=== PATIENT | male | born 1960 | race Caucasian/White ===

== ENCOUNTER 2021-10-13 12:48 | Outpatient (REF) | payer MEDICARE, MEDICAID, SELFPAY ==
--- NOTE | 2021-10-13 | EEG_ITS ---
PROCEDURE: 24 hour ambulatory EEG. Waking background activity consists of a moderate voltage 8 hertz posterior alpha frequency, intermixed with low voltage fast frequencies anteriorly. Drowsiness is characterized with diffuse theta slowing. Stages I-IV sleep are noted with symmetrical frontal central sleep spindles, vertex sharp transients, and K complexes. Arousals are unremarkable. No focal, lateralizing, or paroxysmal discharges seen. IMPRESSION: This 24-hour ambulatory EEG is considered to be within limits. The patient remained asymptomatic. MD DARIUS Maldonado/BUD / [id number]
== END 2021-10-13 12:49 | disposition home or self-care (01) ==
LOC: HO.NEURO 12:48
PROVIDERS: PCP Internal Medicine; Visit Provider Psychiatry & Neurology Neurology
DX: R56.9 Unspecified convulsions (principal)
CPT/HCPCS: 95708

== ENCOUNTER 2024-12-08 13:40 | Outpatient (AMB) | payer MEDICARE, MEDICAID, SELFPAY ==
--- OUTSIDE RECORDS SUMMARY | 2024-09-26 09:00 | XMS_ITS ---
Author Organization [facility] Address [address], [place] [id number] Care Team Providers Care Avionics Manager Name Role Phone MARY DELGADO Primary Care Provider ALLERGIES No Known Allergies REASON FOR VISIT 3mo MEDICATIONS Medication SIG (Take, Route, Frequency, Duration) Notes Start Date End Date Status Carvedilol 6.25 MG 1.5 tablets with food Orally Twice a day Active Albuterol Sulfate (2.5 MG/3ML) 0.083% inhale 3 milliliter by NEBULIZATION route 4 times every day Inhalation 4 times daily 07/05/2021 Active Albuterol Sulfate HFA 108 (90 Base) MCG/ACT inhale 2 puff s Inhalation every 4 hrs prn 03/16/2022 Active Daliresp 500 MCG take 1 tablet by oral route every day Oral Roflumilast 03/26/2022 Active Trelegy Ellipta 200-62.5-25 MCG/ACT inhale 1 puff by inhalation route every day at the same time each day Inhalation 08/16/2021 Active levETIRAcetam 500 MG 3 tablets Orally Twice a day Active Repatha 140 MG/ML 1 mL Subcutaneous every 14 days Active Lacosamide 150 MG TAKE ONE TABLET BY MOUTH TWO TIMES A DAY 08/24/2024 Active Biktarvy 50-200-25 MG take 1 tablet by oral route every day Oral Active Entresto 97-103 MG 1 tablet Orally Twice a day Active Omeprazole 40 MG 1 capsule 1/2 to 1 hour before morning meal Orally Once a day for 30 days Active Rosuvastatin Calcium 40 MG TAKE ONE TABLET BY MOUTH ONCE DAILY for 30 Active Aspirin 81 MG 1 tablet Orally Once a day 03/31/2020 Active Nitroglycerin 0.[address] 1 TABLET UNDER THE TONGUE AT 1ST SIGN OF ATTACK, MAY REPEAT EVERY 5 MINUTES UNTIL RELIEF, IF PAIN PERSISTS AFTER 3 TABLETS IN 15 MIN CALL 911 for 8 Active OLANZapine 5 MG 1 tablet Orally Once a day Active Isosorbide Mononitrate ER 120 MG 1 tablet in the morning Orally Once a day Active Oxygen 3L per min iwth ambul; 2 L with sleeping, 0 at rest Active Sertraline HCl 100 MG 2 tablets Orally Once a day Active traZODone HCl 50 MG 1.5 MG tab Orally Once a day Active SOCIAL HISTORY Tobacco Use: Social History Observation Description Date Details (start date - stop date) Former Smoker NA - NA Sex Assigned At : Social History Observation Description Sex Assigned At Unknown Smoking Question Answer Notes Are you a: former smoker VITAL SIGNS Height 65.00 in 09/26/2024 Weight 146 lbs 09/26/2024 Blood pressure systolic 108 mm Hg 09/27/19 25 Blood pressure diastolic 64 mm Hg 025 BMI 24.29 kg/m2 09/26/2024 Encounters Encounter Location Date Provider Diagnosis [facility] [address] [place] [address] 09/26/2024 [facility] Chronic obstructive pulmonary disease, unspecified J44.9 ; Coronary artery disease of [place] artery of [place] heart with stable angina pectoris I25.118 ; Seizure disorder G40.909 ; Obstructive sleep apnea G47.33 and Human immunodeficiency virus [HIV] disease B20 ASSESSMENTS Encounter Date Diagnosis Assessment Notes Treatment Notes Treatment Clinical Notes Section Notes 09/26/2024 Chronic obstructive pulmonary disease, unspecified (ICD-10 - J44.9) 1. COPD: Stable on current bronchodilators and supplemental O2. He will call any sign of flaring 2. Coronary artery disease: Stable on medical therapy with no recent angina. Continue same 3. Seizure disorder: Recently had follow-up with neurology no changes were made to his anticonvulsant regimen 4. Obstructive sleep apnea: Not using CPAP. Explained this may be contributing to some of his headaches 5. HIV: Fully suppressed on current regimen. Has follow-up with infectious disease in 09/26/2024 Coronary artery disease of [place] artery of [place] heart with stable angina pectoris (ICD-10 - I25.118) 1. COPD: Stable on current bronchodilators and supplemental O2. He will call any sign of flaring 2. Coronary artery disease: Stable on medical therapy with no recent angina. Continue same 3. Seizure disorder: Recently had follow-up with neurology no changes were made to his anticonvulsant regimen 4. Obstructive sleep apnea: Not using CPAP. Explained this may be contributing to some of his headaches 5. HIV: Fully suppressed on current regimen. Has follow-up with infectious disease in 09/26/2024 Seizure disorder (ICD-10 - G40.909) 1. COPD: Stable on current bronchodilators and supplemental O2. He will call any sign of flaring 2. Coronary artery disease: Stable on medical therapy with no recent angina. Continue same 3. Seizure disorder: Recently had follow-up with neurology no changes were made to his anticonvulsant regimen 4. Obstructive sleep apnea: Not using CPAP. Explained this may be contributing to some of his headaches 5. HIV: Fully suppressed on current regimen. Has follow-up with infectious disease in 09/26/2024 Obstructive sleep apnea (ICD-10 - G47.33) 1. COPD: Stable on current bronchodilators and supplemental O2. He will call any sign of flaring 2. Coronary artery disease: Stable on medical therapy with no recent angina. Continue same 3. Seizure disorder: Recently had follow-up with neurology no changes were made to his anticonvulsant regimen 4. Obstructive sleep apnea: Not using CPAP. Explained this may be contributing to some of his headaches 5. HIV: Fully suppressed on current regimen. Has follow-up with infectious disease in 09/26/2024 Human immunodeficiency virus [HIV] disease (ICD-10 - B20) 1. COPD: Stable on current bronchodilators and supplemental O2. He will call any sign of flaring 2. Coronary artery disease: Stable on medical therapy with no recent angina. Continue same 3. Seizure disorder: Recently had follow-up with neurology no changes were made to his anticonvulsant regimen 4. Obstructive sleep apnea: Not using CPAP. Explained this may be contributing to some of his headaches 5. HIV: Fully suppressed on current regimen. Has follow-up with infectious disease in November PLAN OF TREATMENT Medication Medication Name Sig Start Date Stop Date Notes Carvedilol 6.25 MG 1.5 tablets with óscar d Orally Twice a day Albuterol Sulfate (2.5 MG/3ML) 0.083% inhale 3 milliliter by NEBULIZATION route 4 times every day Inhalation 4 times daily 07/05/2021 Albuterol Sulfate HFA 108 (90 Base) MCG/ACT inhale 2 puff s Inhalation every 4 hrs prn 03/16/2022 Daliresp 500 MCG take 1 tablet by ora l route every day Oral 03/26/2022 Roflumilast Trelegy Ellipta 200-62.5-25 MCG/ACT inhale 1 puff by inhalation route every day at the same time each day Inhalation 08/16/2021 levETIRAcetam 500 MG 3 tablets Orally Tw ice a day Repatha 140 MG/ML 1 mL Subcutaneous ev román 14 days Lacosamide 150 MG TAKE ONE TABLET BY M OUTH TWO TIMES A DAY 08/24/2024 Biktarvy 50-200-25 MG take 1 tablet by o ral route every day Oral Entresto 97-103 MG 1 tablet Orally Twic e a day Next Appt Details Provider Name:YAIR Spivey, 12/10/2024 02:30:00 PM, [address] [place] [address], [phone], Provider Name:MARY Allysas DELGADO , 12/10/2024 03:00:00 PM, [address] [place] [address], [phone], Provider Name:MARY Allyssa DELGADO , 12/10/2024 03:30:00 PM, [address] [place] [address], [phone], Progress Notes * Examination Category Sub-Category Detail Notes Category Not es General Examination Heart: RSR, normal S1S2 Lungs: poor air movement th roughout Extremities: no edema General Appearance no apparent distress , pleasant, chronically ill appearing, wearing O2 Psych: alert, oriented X 3 Other normal affect History and Physical Notes * HPI (History of Present Illness) Category Sub-Category Detail Notes Category Not es General Patient reports feeling fairly well. Staying inside in the heat. No chest pain No NTG use. Sees Cardiology in Nov. Saw Neuro, complained of episodic headaches.- had neg CT brain No change in seizure Rx Seeing ID soon- due for HIV labs
--- OUTSIDE RECORDS SUMMARY | 2024-11-16 08:22 | XMS_ITS ---
Author Organization [facility] Address [address], [place] [id number] Care Team Providers Care Branch Lending Manager Name Role Phone MARY DELGADO Primary Care Provider [phone] REASON FOR VISIT Angioplasty Encounters Encounter Location Date Provider Diagnosis [address] [address] 11/16/2024 MARY DELGADO PLAN OF TREATMENT Next Appt Details Provider Name:YAIR Spivey, 12/10/2024 02:30:00 PM, [address] [place] [address], [phone], Provider Name:MARY DELGADO , 12/10/2024 03:00:00 PM, [address] [place] [address], [phone], Provider Name:MARY DELGADO , 12/10/2024 03:30:00 PM, [address] [place] [address], [phone],
--- OUTSIDE RECORDS SUMMARY | 2024-11-19 05:40 | XMS_ITS ---
Author Organization [facility] Address [address], [place] [id number] Care Team Providers Care Laundry Room Attendant Name Role Phone MARY DELGADO Primary Care Provider [phone] REASON FOR VISIT Plavix 75 mg MEDICATIONS Medication SIG (Take, Route, Fr equency, Duration) Notes Start Date End Date Status Famotidine 40 MG 1 tablet Orally Once a day for 90 day(s) 11/19/2024 Active Encounters Encounter Location Date Provider Diagnosis [address] [address] 11/19/2024 MARY DELGADO PLAN OF TREATMENT Medication Medication Name Sig Start Date Stop Date Notes Famotidine 40 MG 1 tablet Orally Once a day for 90 day(s) 11/19/2024 Next Appt Details Provider Name:YAIR Spivey, 12/10/2024 02:30:00 PM, [address] [place] [address], [phone], Provider Name:MARY DELGADO , 12/10/2024 03:00:00 PM, [address] [place] [address], [phone], Provider Name:MARY DELGADO , 12/10/2024 03:30:00 PM, [address] [place] [address], [phone],
--- OUTSIDE RECORDS SUMMARY | 2024-12-02 21:16 | XMS_ITS ---
Author Organization [facility] Address [address], [place] [id number] Care Team Providers Care Sack Cleaner Name Role Phone MARY DELGADO Primary Care Provider REASON FOR VISIT RE:Plavix 75 mg Encounters Encounter Location Date Provider Diagnosis [address] [address] 12/03/2024 MARY DELGADO PLAN OF TREATMENT Next Appt Details Provider Name:YAIR Spivey, 12/10/2024 02:30:00 PM, [address] [place] [address], [phone], Provider Name:MARY DELGADO , 12/10/2024 03:00:00 PM, [address] [place] [address], [phone], Provider Name:MARY DELGADO , 12/10/2024 03:30:00 PM, [address] [place] [address], [phone],
--- OUTSIDE RECORDS SUMMARY | 2024-12-03 06:37 | XMS_ITS ---
Author Organization [facility] Address [address], [place] [id number] Care Team Providers Care Sample Washer Name Role Phone MARY DELGADO Primary Care Provider [phone] REASON FOR VISIT Famotidine MEDICATIONS Medication SIG (Take, Route, Fr equency, Duration) Notes Start Date End Date Status Famotidine 40 MG 1 tablet Orally Twic e a day for 90 day(s) 11/19/2024 Active Encounters Encounter Location Date Provider Diagnosis [address] [address] 12/03/2024 MARY DELGADO PLAN OF TREATMENT Medication Medication Name Sig Start Date Stop Date Notes Famotidine 40 MG 1 tablet Orally Twice a day for 90 day(s) 11/19/2024 Next Appt Details Provider Name:YAIR Spivey, 12/10/2024 02:30:00 PM, [address] [place] [address], [phone], Provider Name:MARY DELGADO , 12/10/2024 03:00:00 PM, [address] [place] [address], [phone], Provider Name:MARY DELGADO , 12/10/2024 03:30:00 PM, [address] [place] [address], [phone],
--- NOTE | 2024-12-08 13:41 | A.OFFVIS_ITS ---
Intake Visit Reasons: 3 month Allergies No Known Allergies Allergy (Verified 12/08/24 13:43) Medication List - Last Reconciled 12/08/24 by Dalia Santiago CNP albuterol sulfate 90 mcg/actuation (Ventolin HFA) inhalation [id number]-wtozkccq-ljrxvbj ala 50-200-25 mg (Biktarvy) 1 tab PO DAILY carvedilol mg PO clopidogrel 75 mg PO DAILY evolocumab (Repatha SureClick) mg subcut famotidine 40 mg PO BID ysxzlvaitcf-ihpxmcrwq-jwbbmaen 200-62.5-25 mcg (Trelegy Ellipta) 1 ea inhalation DAILY isosorbide mononitrate ER 120 mg PO DAILY lacosamide mg PO levetiracetam mg PO nitroglycerin mg sublingual olanzapine 5 mg PO BEDTIME roflumilast 500 mcg PO DAILY rosuvastatin 40 mg PO DAILY sacubitril-valsartan 97-103 mg (Entresto) 1 tab PO BID sertraline 100 mg PO BID trazodone 100 mg PO BEDTIME PRN HPI Comments Details: He was doing okay. He had two cardiac stents in 11/2024. Feels breathing is better. Started cardiac rehab this week. No seizures. Taking levetiracetam 1500mg twice a day and Vimpat 150mg twice a day. Memory was stable, foggy at times. Sleep was okay, unable to tolerate BiPap. Headaches were better, less frequent. Takes Tylenol as needed on occasion which helps. Previously was having headaches almost every day starting in summer 2024. No photophobia, nausea, or vomiting. Some sensitivity to loud noises. Tylenol as needed helped some. His CT brain from 07/11/21 showed mild atrophy. Needs O2 constantly. He has a history of HIV, COPD depression and anxiety and heart disease who went to [facility] emergency room by ambulance on 07/09/21 with shortness of breath and tosin arently had a cardiac arrest with an IL and multiple seizures. He was put on the ventilator and transferred to [facility]. He was on a ventilator from that point on 07/19/2021. He's had no further seizures since then and is on Keppra 1500 mg twice a day and Vimpat 150 mg twice a day. He's never had any previous seizures. Records from [facility] and not available at this time. He is on multiple medications for his psychiatric disorder as well. Was hospitalized again in 11/2021 for exacerbation of COPD and was a vent 11/25/21- , and again hospitalized 12/19/21-12/23/21 for COPD. [facility] Medical History (Updated 12/08/24 @ 13:59 by Dalia Santiago CNP) HPV in male Depression Anxiety Coronary artery disease HIV (human immunodeficiency virus infection) Surgical History (Updated 12/08/24 @ 13:59 by Dalia Santiago CNP) H/O heart artery stent History of total right hip replacement Review of Systems Const Denies chills, Denies daytime sleepiness, Reports difficulty sleeping, Reports fatigue, Denies fever(s), Denies frequent falls, Reports headache(s), Denies increased appetite, Denies poor appetite, Denies snoring, Denies weakness, Denies weight gain and Denies weight loss Eyes Denies loss of vision ENT Denies vertigo, Reports dizziness, Reports headache(s) and Denies neck pain Card Denies chest pain at rest, Denies chest pain with activity, Denies syncope, Denies leg edema, Denies palpitations, Reports dyspnea and Denies dyspnea on exertion Resp Denies cough, Reports dyspnea, Denies dyspnea on exertion and Denies snoring GI Denies abdominal pain, Denies constipation, Reports heartburn, Denies diarrhea and Denies nausea Denies urinary frequency, Denies urinary incontinence and Denies urinary urgency Musc Denies abnormal gait, Denies back pain, Reports myalgias, Reports arthralgias, Denies neck pain, Denies numbness and Denies tingling Neuro Denies abnormal gait, Denies vertigo, Reports dizziness, Denies syncope, Denies frequent falls, Reports headache(s), Denies lack of coordination, Denies loss of vision, Reports memory loss, Denies numbness, Denies Other visual disturbances, Denies restless legs, Denies seizure-like activity, Denies tingling, Denies paresthesias, Denies tremor(s) and Denies weakness Psych Reports anxiety, Reports depression, Denies auditory hallucinations, Reports memory loss and Denies visual hallucinations Endo Reports fatigue and Denies palpitations Physical Exam Const Other: General Appearance:? normal, in no acute distress. Heart:? S1, S2 normal, no murmurs. Lungs:? clear anteriorly and posteriorly. Musculoskeletal:? normal. Extremities:? no edema. Psych:? alert, oriented, cognitive function intact, cooperative with exam. Neuro Other: Abnormal Neurological Findings:?Walking with cane. Mental Status: alert and oriented X 3. Normal attention, orientation, memory, and affect. Cranial Nerves: Pupils are equal, round, and reactive to light. External ocular muscles are intact. Visual yuan are full, no ptosis. Face is symmetrical, no facial weakness or droop. Facial sensations are normal. Tongue protrudes in midline. Palate elevates symmetrically. Shoulder shrugging is normal Motor Examination: Normal muscle tone, bulk and strength. No atrophy or fasciculations. No drift of the extended upper extremities. DTR 2+. Plantars are flexor. Sensory Exam: Normal light touch, temperature, pinprick, vibration, and joint- position sensations. Rhomberg sign is absent. Coordination: No ataxia. No titubation. Gait Exam: With cane. Cerebellar Signs: Yvjpzg-oo-odsb is okay. Extrapyramidal System: No tremor, rigidity with normal facial expressions. No bradykinesia. No bradyphrenia. Normal arm swing and posture. No propulsion or retropulsion. Speech: Normal. Results Reviewed Results Reviewed: CT brain with contrast 08/28/2024 at [facility]: No findings of acute intracranial process or abnormal enhancement. 10/06/21 EEG- Mildly abnormal with 9 Hz mod voltage background. Paroxysmal sharp theta activity from both temporal regions Assessment & Plan Assessment & Plan (1) Seizure: Code(s): R56.9 - Unspecified convulsions Category: Medical Plan: Continue levetiracetam 500mg 3 tablets twice a day. Continue Vimpat 150mg 1 tablet twice a day. (2) Tension headache: Code(s): G44.209 - Tension-type headache, unspecified, not intractable Category: Medical Plan: CT scan results reviewed. May continue Tylenol as needed. Coding Level of Care Code Est Pt Level 4 (77649) Diagnoses Seizure R56.9 Tension headache G44.209
--- OUTSIDE RECORDS SUMMARY | 2024-12-08 15:58 | XMS_ITS | Patient Health Record ---
Author Organization [facility] Address [address] [place], [place] [id number] Care Team Providers Care Speech Coach Name Role Phone MARY DELGADO Primary Care Provider ALLERGIES No Known Allergies REASON FOR REFERRAL No Information MEDICATIONS Medication SIG (Take, Route, Frequency, Duration) Notes Start Date End Date Status Daliresp 500 MCG take 1 tablet by oral route every day Oral Roflumilast 03/26/2022 Active Famotidine 40 MG 1 tablet Orally Twice a day for 90 day(s) 11/19/2024 Active Nitroglycerin 0.[address] 1 TABLET UNDER THE TONGUE AT 1ST SIGN OF ATTACK, MAY REPEAT EVERY 5 MINUTES UNTIL RELIEF, IF PAIN PERSISTS AFTER 3 TABLETS IN 15 MIN CALL 911 for 8 Active Trelegy Ellipta 200-62.5-25 MCG/ACT inhale 1 puff by inhalation route every day at the same time each day Inhalation 08/16/2021 Active OLANZapine 5 MG 1 tablet Orally Once a day Active Sertraline HCl 100 MG 2 tablets Orally Once a day Active traZODone HCl 50 MG 1.5 MG tab Orally Once a day Active Isosorbide Mononitrate ER 120 MG TAKE ONE TABLET BY MOUTH ONCE DAILY for 30 Active levETIRAcetam 500 MG 3 tablets Orally Twice a day Active Repatha 140 MG/ML 1 mL Subcutaneous every 14 days Active Lacosamide 150 MG TAKE ONE TABLET BY MOUTH TWO TIMES A DAY 08/24/2024 Active Carvedilol 6.25 MG TAKE ONE AND A HALF TABLETS BY MOUTH TWO TIMES A DAY for 30 Active Biktarvy 50-200-25 MG take 1 tablet by oral route every day Oral Active Oxygen 3L per min iwth ambul; 2 L with sleeping, 0 at rest Active Omeprazole 40 MG 1 capsule 1/2 to 1 hour before morning meal Orally Once a day for 30 days Active Albuterol Sulfate (2.5 MG/3ML) 0.083% inhale 3 milliliter by NEBULIZATION route 4 times every day Inhalation 4 times daily 07/05/2021 Active Rosuvastatin Calcium 40 MG TAKE ONE TABLET BY MOUTH ONCE DAILY for 30 Active Albuterol Sulfate HFA 108 (90 Base) MCG/ACT inhale 2 puff s Inhalation every 4 hrs prn 03/16/2022 Active Aspirin 81 MG 1 tablet Orally Once a day 03/31/2020 Active Entresto 97-103 MG 1 tablet Orally Twice a day Active IMMUNIZATIONS Vaccine Route Administration Date Status Comme nts Influenza, Flublok IM Intramuscular 01/18/2024 Administere d Influenza, Fluzone Quad IM Intramuscular 12/22/2022 Admini stered Pneumococcal Prevnar 13 IM Intramuscular 01/17/2003 Admini stered Pneumococcal Prevnar 13 IM Intramuscular 02/13/2012 Admini stered Pneumococcal Prevnar 13 Unknown 12/16/2014 Administered Pneumococcal, PPV 23 Unknown 01/17/2003 Administered Pneumococcal, PPV 23 Unknown 02/13/2012 Administered [id number] IM Intramuscular 02/23/2022 Administered Prevnar Unknown 02/17/2022 Administered SARSCOV2 VAC 30 MCG TRS-SUCR Pfizer Unknown 12/28/2020 Administered Td (Tetanus Diphtheria) Unknown 06/17/2008 Administered Zoster recombinant Unknown 02/17/2022 Administered SOCIAL HISTORY Tobacco Use: Social History Observation Description Date Details (start date - stop date) Former Smoker NA - NA Sex Assigned At : Social History Observation Description Sex Assigned At Unknown Smoking Question Answer Notes Are you a: former smoker PROBLEMS Problem Type ICD Code Onset Dates Problem Status W/U Status Risk SNOMED Code Notes Problem Obstructive sleep apnea (G47.33) Active confirmed 93519046 Problem Essential (primary) hypertension (I10) Active confirmed Essential hypertension (33038022) Problem COPD exacerbation (J44.1) Active confirmed 117836735 Problem Ischemic cardiomyopathy (I25.5) Active confirmed 004511774 Problem Seizure disorder (G40.909) Active confirmed 851269705 Problem Primary osteoarthritis of left hip (M16.12) Active confirmed [id number] Problem Coronary artery disease of [place] artery of [place] heart with stable angina pectoris (I25.118) Active confirmed 73721023 Problem Chronic obstructive pulmonary disease, unspecified (J44.9) 014 Active confirmed Chronic obstructive pulmonary disease (04772186) Problem Human immunodeficiency virus [HIV] disease (B20) 010 Active confirmed Human immunodeficiency virus infection (36935677) Problem Mixed hyperlipidemia (E78.2) 010 Active confirmed Mixed hyperlipidemia (952206385) Problem Chronic obstructive pulmonary disease with (acute) exacerbation (J44.1) 010 Active confirmed Acute exacerbati on of chronic obstructive airways disease (300824623) Problem Irritable bowel syndrome with diarrhea (K58.0) 014 Active confirmed Irritable bowel syndrome with diarrhea (892380651) Problem Sprain of ribs, initial encounter (S23.41XA) 010 Active confirmed Chondrocostal joint sprain (disorder) (867001729) Problem Sprain of ribs, subsequent encounter (S23.41XD) Active confirmed Chondrocostal joint sprain (disorder) (718440615) VITAL SIGNS Blood pressure diastolic 64 mm Hg 09/26/2024 Height 65.00 in 09/26/2024 Blood pressure systolic 108 mm Hg 09/26/2024 Weight 146 lbs 09/26/2024 BMI 24.29 kg/m2 09/26/2024 Encounters Encounter Location Date Provider Diagnosis [address] [address] 01/18/2024 [facility] Chronic obstructive pulmonary disease, unspecified J44.9 ; Ischemic cardiomyopathy I25.5 ; Human immunodeficiency virus [HIV] disease B20 ; Seizure disorder G40.909 ; Neurogenic claudication R29.818 and Encounter for immunization Z23 [address] [phone] 01/30/2024 [place] [id number] 02/19/[address] [address] 04/01/2024 [place] [id number] 04/25/2024 [facility] Chronic obstructive pulmonary disease, unspecified J44.9 ; Ischemic cardiomyopathy I25.5 ; Seizure disorder G40.909 ; Frequent headaches R51.9 ; Obstructive sleep apnea G47.33 and Human immunodeficiency virus [HIV] disease B20 [facility] [address] [facility] [place] [address] 04/25/2024 [facility] [address] [place] [phone] 05/05/2024 [facility] [address] [place] [address] 05/26/2024 [facility] Coronary artery dise ase of [place] artery of [place] heart with stable angina pectoris I25.118 ; Chronic obstructive pulmonary disease, unspecified J44.9 ; Human immunodeficiency virus [HIV] disease B20 and Essential (primary) hypertension I10 [address] [address] 06/19/2024 [facility] Seizure disorder G40 .909 [facility] [address] [place] [phone] 06/23/2024 [facility] [address] [place] [id number] 06/23/[address] [address] 06/26/2024 [facility] Coronary artery dise ase of [place] artery of [place] heart with stable angina pectoris I25.118 ; Chronic obstructive pulmonary disease, unspecified J44.9 ; Human immunodeficiency virus [HIV] disease B20 ; Seizure disorder G40.909 and Ischemic cardiomyopathy I25.5 [facility] [address] [place] [phone] 08/19/2024 [facility] [address] [place] [phone] 08/19/2024 [facility] Dental infection K04 .7 ; Cervical lymphadenopathy R59.0 ; Chronic obstructive pulmonary disease, unspecified J44.9 and Essential (primary) hypertension I10 [address] [address] 09/26/2024 [facility] Chronic obstructive pulmonary disease, unspecified J44.9 ; Coronary artery disease of [place] artery of [place] heart with stable angina pectoris I25.118 ; Seizure disorder G40.909 ; Obstructive sleep apnea G47.33 and Human immunodeficiency virus [HIV] disease B20 [facility] [address] [facility] [place] [address] 11/16/2024 [facility] [address] [facility] [place] [address] 11/19/2024 [facility] [address] [place] [address] 12/03/2024 [facility] [address] [facility] [place] [address] 12/03/2024 [facility] ASSESS[facility] Encounter Date Diagnosis Assessment Notes Treatment Notes Treatment Clinical Notes Section Notes 01/18/2024 Chronic obstructive pulmonary disease, unspecified (ICD-10 - J44.9) 1. COPD/histiocytosi s X. Stable on current bronchodilators. Has been able to cut back on oxygen some. Follow closely with pulmonary 2. Ischemic cardiomyopathy: Will follow-up on coronary CT results. Needs updated lipids. Appears stable on current medical regimen. Euvolemic 3. HIV: Stable on present antiretrovirals. No changes made 4. Seizure disorder: No seizures. He sees neurology once a year at present 5. Neurogenic claudication: Is to be seen at [facility]. He had injections at [facility] in the lumbar region in the past which did not provide significant relief but surgery would be a major undertaking with his other medical issues 6. Flu shot today 01/18/2024 Ischemic cardiomyopathy (ICD-10 - I25.5) 1. COPD/histiocytosi s X. Stable on current bronchodilators. Has been able to cut back on oxygen some. Follow closely with pulmonary 2. Ischemic cardiomyopathy: Will follow-up on coronary CT results. Needs updated lipids. Appears stable on current medical regimen. Euvolemic 3. HIV: Stable on present antiretrovirals. No changes made 4. Seizure disorder: No seizures. He sees neurology once a year at present 5. Neurogenic claudication: Is to be seen at [facility]. He had injections at [facility] in the lumbar region in the past which did not provide significant relief but surgery would be a major undertaking with his other medical issues 6. Flu shot today 04/25/2024 Chronic obstructive pulmonary disease, unspecified (ICD-10 - J44.9) 1 ischemic cardiomyopathy: Multivessel disease on coronary CT. Plan was for catheterization. Will continue current medical therapy. Blood pressure is elevated today which is unusual for him. Will recheck next month 2. COPD: Stable on present bronchodilators. No changes made today 3. Seizure disorder: Saw neurology recently and no changes were made to anticonvulsants. Will send for consult 4. Frequent headaches: Discussed possible imaging. He is needing nitro 2-3 times a week and this may be contributing as well. He wishes to hold off on imaging for now 5. Obstructive sleep apnea: Reports Need to be discontinued CPAP due to his inability to tolerate 6. HIV: Stable on present antiretrovirals. Will follow with infectious disease 04/25/2024 Ischemic cardiomyopathy (ICD-10 - I25.5) 1 ischemic cardiomyopathy: Multivessel disease on coronary CT. Plan was for catheterization. Will continue current medical therapy. Blood pressure is elevated today which is unusual for him. Will recheck next month 2. COPD: Stable on present bronchodilators. No changes made today 3. Seizure disorder: Saw neurology recently and no changes were made to anticonvulsants. Will send for consult 4. Frequent headaches: Discussed possible imaging. He is needing nitro 2-3 times a week and this may be contributing as well. He wishes to hold off on imaging for now 5. Obstructive sleep apnea: Reports Need to be discontinued CPAP due to his inability to tolerate 6. HIV: Stable on present antiretrovirals. Will follow with infectious disease 05/26/2024 Chronic obstructive pulmonary disease, unspecified (ICD-10 - J44.9) 1. Coronary artery disease: Patient has prior diagnosed totally occluded right coronary. He has significant disease in the mid LAD and left circumflex now. Await discussion with cardiology next week as to whether stenting is an option. Patient is very hesitant to pursue surgery 2. COPD: Continue present bronchodilators. Chronic dyspnea is more likely cardiac in origin. 3. Hypertension: Well-controlled on present therapy. No changes made today 4. HIV: Fully suppressed on current regimen. Continue same retrovirals 05/26/2024 Coronary artery disease of [place] artery of [place] heart with stable angina pectoris (ICD-10 - I25.118) 1. Coronary artery disease: Patient has prior diagnosed totally occluded right coronary. He has significant disease in the mid LAD and left circumflex now. Await discussion with cardiology next week as to whether stenting is an option. Patient is very hesitant to pursue surgery 2. COPD: Continue present bronchodilators. Chronic dyspnea is more likely cardiac in origin. 3. Hypertension: Well-controlled on present therapy. No changes made today 4. HIV: Fully suppressed on current regimen. Continue same retrovirals 06/19/2024 Seizure disorder (ICD-10 - G40.909) 06/26/2024 Chronic obstructive pulmonary disease, unspecified (ICD-10 - J44.9) 1. Coronary artery disease: Multivessel disease reportedly found at catheterization. He is not wanting to pursue surgery at this time. Will follow with cardiology on medical therapy 2. COPD: Continue present bronchodilators. He continues on supplemental O2 3. HIV: Suppressed on recent blood work. No changes to antiviral regimen 4. Seizure disorder: No recurrence on present anticonvulsants. Continue same 5. Ischemic cardiomyopathy: Continues on medical therapy. Blood pressure is on the lower side but appears to be tolerating. Will follow closely 06/26/2024 Coronary artery disease of [place] artery of [place] heart with stable angina pectoris (ICD-10 - I25.118) 1. Coronary artery disease: Multivessel disease reportedly found at catheterization. He is not wanting to pursue surgery at this time. Will follow with cardiology on medical therapy 2. COPD: Continue present bronchodilators. He continues on supplemental O2 3. HIV: Suppressed on recent blood work. No changes to antiviral regimen 4. Seizure disorder: No recurrence on present anticonvulsants. Continue same 5. Ischemic cardiomyopathy: Continues on medical therapy. Blood pressure is on the lower side but appears to be tolerating. Will follow closely 09/26/2024 Chronic obstructive pulmonary disease, unspecified (ICD-10 [...] disease in 09/26/2024 Coronary artery disease of [place] artery of [place] heart with stable angina pectoris (ICD-10 - [...] regimen. Has follow-up with infectious disease in 08/19/2024 Cervical lymphadenopathy (ICD-10 - R59.0) 1. Cervical adenopathy/dental infection: Expect to are related. We will treat with Augmentin for a week and he will let me know if lymph node does not resolve. He has follow-up pending with the dentist for capping his tooth. If any new symptoms arise he will let me know 2. COPD: Stable on present bronchodilators. No changes made today 3. Hypertension: Stable on present regimen. No changes made today 08/19/2024 Dental infection (ICD-10 - K04.7) 1. Cervical adenopathy/dental infection: Expect to are related. We will treat with Augmentin for a week and he will let me know if lymph node does not resolve. He has follow-up pending with the dentist for capping his tooth. If any new symptoms arise he will let me know 2. COPD: Stable on present bronchodilators. No changes made today 3. Hypertension: Stable on present regimen. No changes made today 08/19/2024 Chronic obstructive pulmonary disease, unspecified (ICD-10 - J44.9) 1. Cervical adenopathy/dental infection: Expect to are related. We will treat with Augmentin for a week and he will let me know if lymph node does not resolve. He has follow-up pending with the dentist for capping his tooth. If any new symptoms arise he will let me know 2. COPD: Stable on present bronchodilators. No changes made today 3. Hypertension: Stable on present regimen. No changes made today 09/26/2024 Seizure disorder (ICD-10 - G40.909) 1. [...] regimen. Has follow-up with infectious disease in 06/26/2024 Human immunodeficiency virus [HIV] disease (ICD-10 - B20) 1. Coronary artery disease: Multivessel disease reportedly found at catheterization. He is not wanting to pursue surgery at this time. Will follow with cardiology on medical therapy 2. COPD: Continue present bronchodilators. He continues on supplemental O2 3. HIV: Suppressed on recent blood work. No changes to antiviral regimen 4. Seizure disorder: No recurrence on present anticonvulsants. Continue same 5. Ischemic cardiomyopathy: Continues on medical therapy. Blood pressure is on the lower side but appears to be tolerating. Will follow closely 05/26/2024 Human immunodeficiency virus [HIV] disease (ICD-10 - B20) 1. Coronary artery disease: Patient has prior diagnosed totally occluded right coronary. He has significant disease in the mid LAD and left circumflex now. Await discussion with cardiology next week as to whether stenting is an option. Patient is very hesitant to pursue surgery 2. COPD: Continue present bronchodilators. Chronic dyspnea is more likely cardiac in origin. 3. Hypertension: Well-controlled on present therapy. No changes made today 4. HIV: Fully suppressed on current regimen. Continue same retrovirals 04/25/2024 Seizure disorder (ICD-10 - G40.909) 1 ischemic cardiomyopathy: Multivessel disease on coronary CT. Plan was for catheterization. Will continue current medical therapy. Blood pressure is elevated today which is unusual for him. Will recheck next month 2. COPD: Stable on present bronchodilators. No changes made today 3. Seizure disorder: Saw neurology recently and no changes were made to anticonvulsants. Will send for consult 4. Frequent headaches: Discussed possible imaging. He is needing nitro 2-3 times a week and this may be contributing as well. He wishes to hold off on imaging for now 5. Obstructive sleep apnea: Reports Need to be discontinued CPAP due to his inability to tolerate 6. HIV: Stable on present antiretrovirals. Will follow with infectious disease 01/18/2024 Human immunodeficiency virus [HIV] disease (ICD-10 - B20) 1. COPD/histiocytosi s X. Stable on current bronchodilators. Has been able to cut back on oxygen some. Follow closely with pulmonary 2. Ischemic cardiomyopathy: Will follow-up on coronary CT results. Needs updated lipids. Appears stable on current medical regimen. Euvolemic 3. HIV: Stable on present antiretrovirals. No changes made 4. Seizure disorder: No seizures. He sees neurology once a year at present 5. Neurogenic claudication: Is to be seen at [facility]. He had injections at [facility] in the lumbar region in the past which did not provide significant relief but surgery would be a major undertaking with his other medical issues 6. Flu shot today 01/18/2024 Seizure disorder (ICD-10 - G40.909) 1. COPD/histiocytosi s X. Stable on current bronchodilators. Has been able to cut back on oxygen some. Follow closely with pulmonary 2. Ischemic cardiomyopathy: Will follow-up on coronary CT results. Needs updated lipids. Appears stable on current medical regimen. Euvolemic 3. HIV: Stable on present antiretrovirals. No changes made 4. Seizure disorder: No seizures. He sees neurology once a year at present 5. Neurogenic claudication: Is to be seen at [facility]. He had injections at [facility] in the lumbar region in the past which did not provide significant relief but surgery would be a major undertaking with his other medical issues 6. Flu shot today 04/25/2024 Frequent headaches (ICD-10 - R51.9) 1 ischemic cardiomyopathy: Multivessel disease on coronary CT. Plan was for catheterization. Will continue current medical therapy. Blood pressure is elevated today which is unusual for him. Will recheck next month 2. COPD: Stable on present bronchodilators. No changes made today 3. Seizure disorder: Saw neurology recently and no changes were made to anticonvulsants. Will send for consult 4. Frequent headaches: Discussed possible imaging. He is needing nitro 2-3 times a week and this may be contributing as well. He wishes to hold off on imaging for now 5. Obstructive sleep apnea: Reports Need to be discontinued CPAP due to his inability to tolerate 6. HIV: Stable on present antiretrovirals. Will follow with infectious disease 05/26/2024 Essential (primary) hypertension (ICD-10 - I10) 1. Coronary artery disease: Patient has prior diagnosed totally occluded right coronary. He has significant disease in the mid LAD and left circumflex now. Await discussion with cardiology next week as to whether stenting is an option. Patient is very hesitant to pursue surgery 2. COPD: Continue present bronchodilators. Chronic dyspnea is more likely cardiac in origin. 3. Hypertension: Well-controlled on present therapy. No changes made today 4. HIV: Fully suppressed on current regimen. Continue same retrovirals 06/26/2024 Seizure disorder (ICD-10 - G40.909) 1. Coronary artery disease: Multivessel disease reportedly found at catheterization. He is not wanting to pursue surgery at this time. Will follow with cardiology on medical therapy 2. COPD: Continue present bronchodilators. He continues on supplemental O2 3. HIV: Suppressed on recent blood work. No changes to antiviral regimen 4. Seizure disorder: No recurrence on present anticonvulsants. Continue same 5. Ischemic cardiomyopathy: Continues on medical therapy. Blood pressure is on the lower side but appears to be tolerating. Will follow closely 09/26/2024 Obstructive sleep apnea (ICD-10 - G47.33) [...] regimen. Has follow-up with infectious disease in 08/19/2024 Essential (primary) hypertension (ICD-10 - I10) 1. Cervical adenopathy/dental infection: Expect to are related. We will treat with Augmentin for a week and he will let me know if lymph node does not resolve. He has follow-up pending with the dentist for capping his tooth. If any new symptoms arise he will let me know 2. COPD: Stable on present bronchodilators. No changes made today 3. Hypertension: Stable on present regimen. No changes made today 01/18/2024 Neurogenic claudication (ICD-10 - R29.818) 1. COPD/histiocytosi s X. Stable on current bronchodilators. Has been able to cut back on oxygen some. Follow closely with pulmonary 2. Ischemic cardiomyopathy: Will follow-up on coronary CT results. Needs updated lipids. Appears stable on current medical regimen. Euvolemic 3. HIV: Stable on present antiretrovirals. No changes made 4. Seizure disorder: No seizures. He sees neurology once a year at present 5. Neurogenic claudication: Is to be seen at [facility]. He had injections at [facility] in the lumbar region in the past which did not provide significant relief but surgery would be a major undertaking with his other medical issues 6. Flu shot today 04/25/2024 Obstructive sleep apnea (ICD-10 - G47.33) 1 ischemic cardiomyopathy: Multivessel disease on coronary CT. Plan was for catheterization. Will continue current medical therapy. Blood pressure is elevated today which is unusual for him. Will recheck next month 2. COPD: Stable on present bronchodilators. No changes made today 3. Seizure disorder: Saw neurology recently and no changes were made to anticonvulsants. Will send for consult 4. Frequent headaches: Discussed possible imaging. He is needing nitro 2-3 times a week and this may be contributing as well. He wishes to hold off on imaging for now 5. Obstructive sleep apnea: Reports [facility] Need to be discontinued CPAP due to his inability to tolerate 6. HIV: Stable on present antiretrovirals. Will follow with infectious disease 06/26/2024 Ischemic cardiomyopathy (ICD-10 - I25.5) 1. Coronary artery disease: Multivessel disease reportedly found at catheterization. He is not wanting to pursue surgery at this time. Will follow with cardiology on medical therapy 2. COPD: Continue present bronchodilators. He continues on supplemental O2 3. HIV: Suppressed on recent blood work. No changes to antiviral regimen 4. Seizure disorder: No recurrence on present anticonvulsants. Continue same 5. Ischemic cardiomyopathy: Continues on medical therapy. Blood pressure is on the lower side but appears to be tolerating. Will follow closely 09/26/2024 Human immunodeficiency virus [HIV] disease (ICD-10 [...] regimen. Has follow-up with infectious disease in 04/25/2024 Human immunodeficiency virus [HIV] disease (ICD-10 - B20) 1 ischemic cardiomyopathy: Multivessel disease on coronary CT. Plan was for catheterization. Will continue current medical therapy. Blood pressure is elevated today which is unusual for him. Will recheck next month 2. COPD: Stable on present bronchodilators. No changes made today 3. Seizure disorder: Saw neurology recently and no changes were made to anticonvulsants. Will send for consult 4. Frequent headaches: Discussed possible imaging. He is needing nitro 2-3 times a week and this may be contributing as well. He wishes to hold off on imaging for now 5. Obstructive sleep apnea: Reports DrCarmen Need to be discontinued CPAP due to his inability to tolerate 6. HIV: Stable on present antiretrovirals. Will follow with infectious disease 01/18/2024 Encounter for immunization (ICD-10 - Z23) Influenza vaccine administered . VIS sheet given. Patient counseled and questions answered. 1. COPD/histiocytosi s X. Stable on current bronchodilators. Has been able to cut back on oxygen some. Follow closely with pulmonary 2. Ischemic cardiomyopathy: Will follow-up on coronary CT results. Needs updated lipids. Appears stable on current medical regimen. Euvolemic 3. HIV: Stable on present antiretrovirals. No changes made 4. Seizure disorder: No seizures. He sees neurology once a year at present 5. Neurogenic claudication: Is to be seen at [facility]. He had injections at [facility] in the lumbar region in the past which did not provide significant relief but surgery would be a major undertaking with his other medical issues 6. Flu shot today PLAN OF TREATMENT Next Appt Details Provider Name:YAIR Spivey, 12/10/2024 02:30:00 PM, [address] [place] [address], [phone], Provider Name:MARY DELGADO , 12/10/2024 03:00:00 PM, [address] [place] [address], [id number], Provider Name:MARY DELGADO , 12/10/2024 03:30:00 PM, [address] [place] [address], [phone], Insurance Providers Payer Name Payer Address Payer Phone Subscriber Number Group Number Insured Name Patient Relationship to Insured Coverage Start Date Coverage End Date [employer]IC[employer] [address] [place] [address] [id number] CHRISTINA DAVIS Self - patient is the insured [facility] [address] [place] [address] [id number] CHRISTINA DAVIS Self - patient is the insured MEDICAL (GENERAL) HISTORY Medical History History ICD Code Disease : Condyloma acuminata, Disease : Histiocytosis X, Disease : HIV, cardiovascular, Disease : Elevated lipid s, gastrointestinal, Disease : GERD, psychiatrid : depression and anxiety pulmonary, Disease : COPD, Problems: Chronic obstructive lung disea se, Problems: Gastroesophageal reflux diseas e, Problems: Human immunodeficiency virus i nfection, Problems: Malaise and fatigue, Problems: Malignant histiocytosis of ext ranodal AND/OR solid organ site Seizures SHELBY - did not tolerate CPAP Surgical History Surgery Date(Month/Year) Right total hip replacement Jan 2023 Disease : cad 3 VESSEL, Sx_Procedure : t reatment medfically
--- OUTSIDE RECORDS SUMMARY | 2024-12-08 15:58 | XMS_ITS | Clinical Summary ---
Author Organization 300 [facility] Address [address] [place] [address] Phone Care Team Providers Care Pumping Supervisor Name Role Phone Jimmie Cristobal MD Primary Care Provider [phone] Allergies No known active allergies Medications traZODone (DESYREL) 100 mg tablet Take 1 tablet (100 mg total) by mouth at bedtime. Active sacubitriL-vals heber (Entresto) 97-103 mg per tablet Take 1 tablet by mouth 2 (two) times a day. Active OLANZapine (ZyPREXA) 2.5 mg tablet Take 1 tablet (2.5 mg total) by mouth at bedtime. Active isosorbide mononitrate (IMDUR) 120 mg 24 hr tablet Take 1 tablet (120 mg total) by mouth 1 (one) time each day. 2 Active carvediloL (COREG) 6.25 mg tablet Take 1.5 tablets by mouth 2 (two) times a day with meals. Active lacosamide (VIMPAT) 150 mg tablet tablet Take 1 tablet (150 mg total) by mouth 2 (two) times a day. Active levETIRAcetam (KEPPRA) 500 mg tablet Take 3 tablets (1,500 mg total) by mouth 2 (two) times a day. Active Oxygen Therapy (O2) gas Oxygen Historical (HISTORICAL OXYGEN) Inhale 1-2 L into the lungs. 2 L during the daily with exertions. 1 L at night Active omeprazole (PriLOSEC) [address] capsule Take 1 capsule (40 mg total) by mouth 1 (one) time each day. Active bictegravir-emt ricitabine-teno fovir alafenamide (Biktarvy) 50-200-25 mg per tablet Take 1 tablet by mouth 1 (one) time each day. Active nitroglycerin (NITROSTAT) 0.[address] 1 tablet (0.4 mg total) under the tongue every 5 (five) minutes if needed. Active aspirin 81 mg EC tablet Take 1 tablet (81 mg total) by mouth 1 (one) time each day. Active diclofenac (VOLTAREN) 1 % topical gel Apply topically. A ctive rosuvastatin (CRESTOR) 40 mg tablet Take 1 tablet (40 mg total) by mouth 1 (one) time each day. Active umeclidinium (Incruse Ellipta) 62.5 mcg/actuation inhalation Inhale 1 puff by mouth 1 (one) time each day. Active albuterol HFA (PROAIR HFA ; PROVENTIL HFA ; VENTOLIN HFA) 90 mcg/actuation inhaler Inhale 2 puffs by mouth every 6 (six) hours if needed for wheezing. Active cholecalciferol (VITAMIN D-3) 50 mcg (2,000 unit) tablet Take 1 tablet (2,000 Units total) by mouth 1 (one) time each day. Active evolocumab (Repatha SureClick) 140 mg/mL pen injector injectionIndica tions:Coronary artery disease of [place] artery of [place] heart with stable angina pectoris (CMS/[facility] V24) Inject 1 mL (140 mg total) under the skin every 14 (fourteen) days. 6 mL 3 5 Active benzonatate (TESSALON) 100 mg capsule Take 1 capsule (100 mg total) by mouth 3 (three) times a day if needed. Active budesonide (PULMICORT) 0.5 mg/2 mL nebulizer solution Take 1 mL (0.25 mg total) by nebulization 1 (one) time each day. 2 Active diazePAM (VALIUM) 5 mg tablet Take 1 tablet (5 mg total) by mouth 3 (three) times a day if needed. Active dapagliflozin propanediol (FARXIGA) 10 mg tablet Take 1 tablet (10 mg total) by mouth 1 (one) time each day. 2 Active HYDROcodone-cuong taminophen (NORCO) 5-325 mg per tablet Take 1 tablet by mouth every 4 (four) hours if needed. Active LORazepam (ATIVAN) 1 mg tablet Take 1 tablet (1 mg total) by mouth every 6 (six) hours if needed. Active ipratropium-alb uteroL (DUONEB) 0.5-2.5 mg/3 mL nebulizer solution Inhale 3 mL by mouth every 6 hours as needed. 2 Active icosapent ethyL (Vascepa) 1 gram capsule Take 2 capsules (2 g total) by mouth 2 (two) times a day with meals. Active nicotine (NICODERM CQ) 14 mg/[address] 1 patch on the skin 1 (one) time each day at the same time. Active polyethylene glycol (GoLYTELY) 236-22.74-6.74 -5.86 gram solution Take 4,000 mL by mouth 1 (one) time. 4 Active azithromycin (ZITHROMAX) 250 mg tablet Take 1 tablet (250 mg total) by mouth 3 (three) times a week. 36 each 5 01/07/20 25 Active fluticasone-ume clidinium-vilan terol (TRELEGY ELLIPTA) 200-62.5-25 mcg inhaler Inhale 1 puff (200 mcg total) by mouth 1 (one) time each day. 1 each 11 5 Active sertraline (ZOLOFT) 100 mg tablet Take 1 tablet (100 mg total) by mouth 1 (one) time each day. 5 Active roflumilast (DALIRESP) 500 mcg tabletIndicatio ns:Chronic obstructive pulmonary disease, unspecified COPD type ([facility] V24, [facility] V28) Take 1 tablet (500 mcg total) by mouth 1 (one) time each day. 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 V24, [facility] V28) 09/08/2024 Chronic heart failure with p reserved ejection fraction (HFpEF) ([facility] V24, [facility] V28) 09/08/2024 Assessment & Plan (11/16/2024 5:14 PM EDT): Muscle pain 09/08/2024 Osteoarthritis 09/08/2024 Peripheral nerve disease 09/08/2024 Scoliosis 09/08/2024 Smoker 09/08/2024 Angina decubitus ([facility] V24) 04/23/2024 Other chest pain 11/22/2023 Overview (03/18/2024): Last Assessment & Plan: As above, we will evaluate this further with an ischemic workup. There may have been a musculoskeletal component involved at the time of this discomfort; however, and was able to be identified today. We will continue to reevaluate this as needed. Right carotid bruit 11/22/2023 Overview (03/18/2024): Last Assessment & Plan: We will evaluate this new finding further with a carotid duplex. Continue Repatha; most recent lipid panel from August 2022 reveals an LDL that is very well- controlled. Blood pressure is favorable as well. Ischemic cardiomyopathy 08/19/2021 Assessment & Plan (11/16/2024 5:14 PM EDT): The patient has a history of ischemic cardiomyopathy with a drop in his EF to 25-30% in July 2021 during hospitalization for COPD exacerbation at which time he was found to have an NSTEMI; EF subsequently improved and was 50 to 55% on most recent echocardiogram on 06/12/2024 which also notes abnormal diastolic function. He appears euvolemic on exam today and offers no symptoms concerning for overt heart failure. He continues to have ongoing episodes of this pain relieved with nitro. As discussed further below, we are investigating further options for revascularization given that he has declined coronary artery bypass graft; he was previously felt not to be a good candidate for bypass surgery and continues to remain as such given his underlying pulmonary history. Will not make any changes to his current guideline directed medical therapies for heart failure; continue carvedilol, Farxiga, and Entresto as well as isosorbide for vasodilatory effect. We discussed risk reduction through lifestyle modifications including healthy diet, routine exercise, and weight management. We reviewed heart failure management including low sodium diet, symptom surveillance, daily weights, and medication compliance. I've asked the patient to call if they develop worsening symptoms of heart failure such as increased shortness of breath, new or worsening cough, increased swelling in the legs or ankles, or weight gain of more than 2 pounds in one day or 4 pounds in one week. Orders: Basic metabolic panel; Future Magnesium; Future HTN (hypertension) 08/18/2021 Overview (03/18/2024): Last Assessment & Plan: The patient's blood pressure remains well controlled on current medical therapies; continue carvedilol, Entresto, and isosorbide. Most recent metabolic panel completed in December 2022 shows stable renal function and electrolytes. Assessment & Plan (11/16/2024 5:14 PM EDT): Blood pressure is favorable on current antihypertensive regimen; continue carvedilol and Entresto, and Imdur. Will update a metabolic panel and magnesium level prior to his upcoming cardiac cath. Orders: Basic metabolic panel; Future Magnesium; Future Hypokinesis 08/18/2021 Myocardial infarction type 2 ([facility] V24, [facility] V28) 08/18/2021 Overview (03/18/2024): hypokinesis Acute respiratory failure wi th hypoxia ([facility] V24, [facility] V28) 07/20/2021 Non-convulsive status epilep ticus ([facility] V24, [facility] V28) 07/12/2021 Familial hypercholesterolemia 05/17/2021 Overview (03/18/2024): Last Assessment & Plan: Continue Repatha; as above LDL has been well-controlled. Assessment & Plan (11/16/2024 5:14 PM EDT): LDL goal for this patient was a history of coronary artery disease as well as diabetes is less than 55; his most recent lipid panel completed 06/06/2024 shows an LDL of 9. Continue Repatha, rosuvastatin, and Vascepa. Panlobular emphysema ([facility] V24, [facility] V28) 05/17/2021 Chronic respiratory failure with hypoxia ([facility] V24, [facility] V28) 10/23/2020 Human immunodeficiency virus ([facility] V24, [facility] V28) 10/23/2020 Coronary artery disease invo lving [place] coronary artery of [place] heart without angina pectoris 04/15/2020 Overview (03/18/2024): Last Assessment & Plan: The patient has a history of triple-vessel disease noted on cardiac catheterization in 02/21/2021 but was not felt to be a good candidate for bypass surgery at that time and was treated medically. He also has a history of ischemic cardiomyopathy with a drop in his EF in July 2021 during a hospitalization for COPD exacerbation. He was found to have an NSTEMI at that time; again he was managed medically and in February 2022 his EF was noted to have improved to 50%. He presents today reporting somewhat atypical chest pain; he has had 2 episodes of left-sided chest pain that have both occurred with going from a laying to seated position on the edge of his bed. He has been able to climb stairs since these episodes without any exertional chest pain. His chest pain is not reproducible upon palpation today. This chest pain was very concerning for him, especially given that it resolved only after nitroglycerin use; we did discuss that it is reassuring that he is able to exert himself without any recurrent symptoms. However, to be prudent he is willing to undergo a nuclear stress test for further evaluation. He does have a history of a seizure disorder but has not had any seizures since 2021 and has been maintained on lacosamide and levetiracetam, followed regularly by neurology. He has a history of COPD but has no wheezes on exam today. Once the results of his stress test have been reviewed, we will continue to readdress the plan. He will call us sooner for any new or worsening symptoms. Continue beta-blockade, long-acting nitrate, daily ASA, and Repatha. Patient advised to seek emergency medical attention by calling 911 if they were to develop severe dyspnea, chest pain that did not resolve with rest or nitroglycerin, or if they were to faint. Assessment & Plan (11/16/2024 5:14 PM EDT): The patient has a history of triple-vessel disease noted on cardiac catheterization in 02/2021 at which time he was not felt to be a good candidate for bypass surgery and was treated medically. Given ongoing angina, he ultimately underwent repeat cardiac catheterization on 04/24/2024 at which time repeat reevaluation for CABG was recommended. He subsequently went with cardiac surgery and via shared decision making, the patient ultimately declined CABG due to his underlying pulmonary disease. Per cardiac cath report, Dr. Jackson had stated that PCI of the LAD and circumflex could be considered if the patient was not felt to be a suitable candidate for coronary artery bypass grafting. As such, I have reviewed this once again with Dr. Jackson who agrees with his previous statements and feels that this continues to be an appropriate next step. The patient is willing to undergo PCI with the understanding that revascularization will not be complete. The risks and benefits of coronary angiogram were discussed with the patient, including the increased risk for bleeding and the less than 0.1% risk for [place], stroke, or . The patient understands and wishes to proceed with coronary angiogram. All questions answered. The patient was advised to refrain from exertional activites and to seek emergent medical attention if he/she develops chest pain or dyspnea which does not resolve with rest or sublingual nitroglycerin. We will not make any changes to his current cardioprotective medical therapies; continue carvedilol, Imdur, daily ASA, Repatha, rosuvastatin, and Vascepa. The patient was advised to seek emergent medical attention by calling 911 if they were to develop severe dyspnea, chest pain that did not resolve with rest or nitroglycerin, or if they were to faint. Essential (primary) hypertension 03/05/2020 Anxiety 01/30/2018 Chronic back pain 01/30/2018 COPD (chronic obstructive pu lmonary disease) ([facility] V24, [facility] V28) 01/30/2018 Overview (03/18/2024): O2 dependent, 4L Depression 01/30/2018 Fatty liver 01/30/2018 GERD (gastroesophageal reflux disease) 8 Haemophilus influenzae infection 01/30/2018 Overview (03/18/2024): 03/2017 IP admit. rhinovirus/enterovirus Histiocytosis X ([facility] V24, [facility] V28) 01/30 Hyperlipidemia 01/30/2018 Overview (03/18/2024): Last Assessment & Plan: Excellent control on Praluent plus Crestor. IBS (irritable bowel syndrome) 01/30/2018 Asymptomatic HIV infection ([facility] V24, [facility] V28) Resolved Problems Problem Noted Date Diagnosed Date Resolved Date Acute systolic CHF (congesti ve heart failure) ([facility] V24, [facility] V28) 07/20/2021 11/16/2024 Encounters Date Type Department Care Team Description 11/13/2024 2:40 PM EDT Office Visit [facility] Cardiology [facility] [place] [phone] Breana Tang NP Ischemic cardiomyopathy (Primary Dx); Chronic heart failure with preserved ejection fraction ([facility] V24, [facility] V28); Coronary artery disease involving [place] coronary artery of [place] heart without angina pectoris; Primary hypertension; Familial hypercholesterolemia 11/13/2024 Telephone [facility] Cardiology [facility] [address] [place] [address] Breana Tang NP 10/07/2024 Telephone Pulmonology [facility] [address] [place] [phone] Josiah Santos MD 09/10/2024 2:00 PM EDT Office Visit Pulmonology [facility] [address] [place] [phone] Josiah Santos MD Pulmonary emphysema, unspecified emphysema type ([facility] V24, [facility] V28) (Primary Dx); Hypoxemia; Pulmonary nodule from Last 3 Months Immunizations Immunization Administration Dates Next Due Hep A, Unspecified 09/19/2016 Hepatitis B (Numneql-X-Xdgbe , Recombivax HB-Adult) 19yo and older 06/25/2018,04/19/2017,11/23/2016,10/19 Meningococcal Conjugate (Men veo) MenACWY 11yo to less than 19 yo 08/23/2017,04/19/2017 Pneumococcal conjugate 13 va lent (Prevnar 13, PCV13) 2mo and older 03/05/2015 Pneumococcal polysaccharide 23 valent (Pneumovax 23) 2yo and older 08/09/2017 Tdap Tetanus diptheria acell ular pertussis (Boostrix; Adacel) 7yo and older 09/14/2016 Surgical History Surgery Date Site/Laterality Comments OTHER SURGICAL HISTORY PROCEDURE: HISTORY OTHER; COMMENT: Testicular surgery OTHER SURGICAL HISTORY PROCEDURE: HISTORY OTHER; COMMENT: Lung Biopsy OTHER SURGICAL HISTORY PROCEDURE: HISTORY OTHER; COMMENT: Rectal Wart curettaged KNEE ARTHROSCOPY PROCEDURE: [place] ARTHROSCOPY AID TX SPINE&/FX KNEE W/O FIXJ CARDIAC CATHETERIZATION DONE ON 05/02/2024 AT [facility] [place] [place] INDICATIONS:CHEST PAIN Medical History Medical History Date Comments HIV (human immunodeficiency virus infection) ([facility] V24, [facility] V28) 01/30/2018 DX:HIV (human im munodeficiency virus infection) ([facility]); COMMENT: 1998, on HAART Hyperlipidemia 01/30/2018 DX:Hyperlipidemi a History of syphilis 01/30/2018 DX:History o f syphilis; COMMENT: 08/2017 Treated IBS (irritable bowel syndrome) 01/30/2018 D X:IBS (irritable bowel syndrome) GERD (gastroesophageal reflu x disease) 01/30/2018 DX:GERD (gastroesophageal re flux disease) Histiocytosis X ([facility] V24 , [facility] V28) 01/30/2018 DX:Histiocytosis X ([facility]) COPD (chronic obstructive pu lmonary disease) ([facility] V24, [facility] V28) 01/30/2018 DX:COPD (chronic o bstructive pulmonary disease) ([facility]); COMMENT: O2 dependent, 4L Haemophilus influenzae infection 01/30/2018 DX:Haemophilus influenzae infection; COMMENT: 03/2017 IP admit. rhinovirus/enterovirus Anxiety 01/30/2018 DX:Anxiety Depression 01/30/2018 DX:Depression Chronic back pain 01/30/2018 DX:Chronic jalen k pain Fatty liver 01/30/2018 DX:Fatty liver Asthma DX:Asthma Chronic respiratory failure ([facility] V24, [facility] V28) DX:Chronic respiratory failu re ([facility]) Family History Medical History Relation Name Comments No Known Problems Brother 1 No Known Problems Brother 2 No Known Problems Brother 3 Hypertension Father Other: Vascular Disease Father Gerber foy Gallbladder-Sepsis MULUGETA- at age 79 Coronary artery disease Mother Heart attack Mother Hyperlipidemia, @ 57 d/t cardiac disease Relation Name Status Comments Brother 1 Brother 2 Brother 3 Father Mother Social History Tobacco Use Types Packs/Day Years Used Date Smoking Tobacco: Former Cigarettes Q uit: 03/05/2020 Smokeless Tobacco: Never Tobacco Cessation:Counseling Given: Not Answered Alcohol Use Standard Drinks/Week Comments Yes 0 (1 standard drink = 0.6 oz pur e alcohol) Sex and Gender Information Value Date Recorded Sex Assigned at Not on file Legal Sex Male 2:46 AM EST Gender Identity Not on file Sexual Orientation Not on file Obstetrics History Last Filed Vital Signs Vital Sign Reading Time Taken Comments Blood Pressure 115/60 11/13/2024 2:42 PM EDT Pulse 76 11/13/2024 2:42 PM EDT Temperature 36.3 C (97.3 F) 09/10/2024 1:50 PM EDT Respiratory Rate 20 09/10/2024 1:50 PM EDT Oxygen Saturation 92% 11/13/2024 2:42 PM EDT Inhaled Oxygen Concentration - - Weight 68 kg (150 lb) 11/13/2024 2:42 PM EDT Height 165.1 cm (5' 5 ) 09/10/2024 1:50 PM EDT Body Mass Index 24.96 09/10/2024 1:50 PM EDT Plan of Treatment Upcoming Encounters Date Type Department Care Team (Late st Contact Info) Description 12/17/2024 2:15 PM EDT Office Visit Pulmonology - [place] [address] [facility] [address] [facility] [address] [place] [address] Josiah Santos MD [address] [place] [phone] 12/18/2024 1:40 PM EDT Office Visit [facility] [address] [facility] [address] [place] [address] Breana Tang, FITNESS DIRECTOR [address] [address] Health Maintenance Due Date Last Done Comments MMR Vaccines (1 of 2 - Risk 2-dose series) 1978 Hepatitis A Vaccines (2 of 2 - Risk 2-dose series) 03/22/2017 09/19/2016 Hepatitis C Screening 02/05/2022 Medicare Annual Wellness Visit 02/05/2022 Social Influencers of Health Screening 02/05/2022 Meningococcal ACWY Vaccine (3 - Risk 2-dose series) 08/23/2022 08/23/2017, 08/13/2017, 04/19/2017 Depression Screening 03/05/2024 COVID-19 Vaccine (6 - Pfizer risk season) 2024 11/22/2023, 01/19/2022, 12/28/2020, Additional history exists Influenza Vaccine (#1) 2024 , 12/22/2022, 12/21/2021, Additional history exists Hypertension/CHF/CAD Annual BMP Blood Test 04/24/2025 04/24/2024, 07/29/2021, 07/29/2021, Additional history exists DTaP,Tdap,and Td Vaccines (2 - Td or Tdap) 09/14/2026 09/14/2016 Colorectal Cancer Screening: FIT-DNA (Cologuard) 10/12/2026 10/13/2023, 10/13/2023 Cholesterol Screening (Lipid Panel) 06/06/2029 06/06/2024 Hepatitis B Vaccines Completed 06/25/2018, 06/22/2018, 04/19/2017, Additional history exists Pneumococcal Vaccine: 50+ Years Completed 02/17/2022, 08/09/2017, 03/05/2015 Zoster Vaccines Completed 08/15/2022, 02/17/2022 RSV Immunization Adult Patients Completed 11/22/2023 HIB Vaccines Aged Out No longer eligi ble based on patient's age to complete this topic HPV Vaccines Aged Out No longer eligi ble based on patient's age to complete this topic IPV Vaccines Aged Out No longer eligi ble based on patient's age to complete this topic Meningococcal B Vaccine Aged Out No l onger eligible based on patient's age to complete this topic RSV Immunization Patients Under 20 months Aged Out No longer eligible based on patient's age to complete this topic Varicella Vaccines Aged Out No longer eligible based on patient's age to complete this topic Procedures Procedure Name Priority Date/Time Associated Diagnosis Comments LIPID PANEL WITH LDL AND HDL RATIO Routine 06/06/2024 9:19 AM EDT BASIC METABOLIC PANEL Routine 04/24/2024 10:57 AM EST from Last 3 Months or Most Recently Relevant to Health Maintenance Results * (ABNORMAL) Lipid panel with LDL and HDL ratio (06/06/2024 9:19 AM EDT) Cholesterol Total 75(L) 100 - 199 mg/dL [facility] Triglycerides 204(H) 0 - 149 mg/dL [facility] HDL Cholesterol 35(L) >39 mg/dL [facility] VLDL Cholesterol Calculated 31 5 - 40 mg/dL [facility] LDL Chol Calc (NIH) 9 0 - 99 mg/dL [facility] LDL/HDL Ratio 0.3 0.0 - 3.6 ratio [facility] Comment: LDL/HDL Ratio Men Women 1/2 Avg.Risk 1.0 1.5 Avg.Risk 3.6 3.2 2X Avg.Risk 6.2 5.0 3X Avg.Risk 8.0 6.1 06/06/2024 9:19 AM EDT 06/06/2024 Narrative [facility] 1 - 06/07/2024 4:06 AM EDT Performed at: 01 - [facility] [address] [id number] Combination Worker: Sejal Luna MD, Phone: [phone] us Leon Obrien MD LAB BLOOD ORDERABLES Final Resu lt [facility] 1 * (ABNORMAL) Basic metabolic panel (04/24/2024 10:57 AM EST) Glucose 76 70 - 99 mg/dL [facility] Blood Urea Nitrogen (BUN) 20 8 - 27 mg/dL [facility] Creatinine 1.17 0.76 - 1.27 mg/dL [facility] 1 eGFR 71 >59 mL/min/1.7 3 [facility] 1 BUN/Creatinine Ratio 17 10 - 24 [facility] 1 Sodium 146(H) 134 - 144 mmol/L [facility] Potassium 4.3 3.5 - 5.2 mmol/L [facility] 1 Chloride 106 96 - 106 mmol/L [facility] 1 Carbon Dioxide 23 20 - 29 mmol/L [facility] 1 Calcium 9.6 8.6 - 10.2 mg/dL [facility] 1 04/24/2024 10:5 7 AM EST 04/24/2024 Narrative [facility] 1 - 04/25/2024 1:06 AM EST Performed at: 01 - [facility] [address] [id number] Combination Worker: Sejal Luna MD, Phone: [phone] Leon Obrien MD LAB BLOOD ORDERABLES Final Resu lt [facility] 1 from Last 3 Months or Most Recently Relevant to Health Maintenance Insurance MEDICARE [place]ICA[place] - [place] Advance Directives Documents on File Type Date Recorded 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 Health Care Decision (hx) 07/31/2021 PO 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 OF 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 Health Care Decision (hx) 10/25/2020 AD MALDONADO DIRECTIVE Health Care Decision (hx) 10/25/2020 AD MALDONADO DIRECTIVE Health Care Decision (hx) 10/25/2020 AD MALDONADO DIRECTIVE Health Care Decision (hx) 10/25/2020 AD MALDONADO DIRECTIVE Health Care Decision (hx) 10/25/2020 AD MALDONADO DIRECTIVE Health Care Decision (hx) 10/25/2020 AD MALDONADO DIRECTIVE Health Care Decision (hx) 10/25/2020 AD MALDONADO DIRECTIVE Health Care Decision (hx) 10/25/2020 AD MALDONADO DIRECTIVE Health Care Decision (hx) 10/25/2020 AD MALDONADO DIRECTIVE Health Care Decision (hx) 2017 AD MALDONADO DIRECTIVE Health Care Decision (hx) 2017 AD MALDONADO DIRECTIVE Health Care Decision (hx) 2017 AD MALDONADO DIRECTIVE Health Care Decision (hx) 2017 AD MALDONADO DIRECTIVE Health Care Decision (hx) 2017 AD MALDONADO DIRECTIVE Health Care Decision (hx) 2017 AD MALDONADO DIRECTIVE Health Care Decision (hx) 2017 AD MALDONADO DIRECTIVE Health Care Decision (hx) 2017 AD MALDONADO DIRECTIVE Health Care Decision (hx) 2017 AD MALDONADO DIRECTIVE Health Care Decision (hx) 2017 AD MALDONADO DIRECTIVE Health Care Decision (hx) 2017 AD MALDONADO DIRECTIVE Health Care Decision (hx) 2017 AD MALDONADO DIRECTIVE Health Care Decision (hx) 2017 AD MALDONADO DIRECTIVE Care Teams Pumping Supervisor Relationship Specialty Start Date End Date Jimmie Cristobal MD [address] [place] [id number] PCP - General Internal Medicine 04/23/24
--- OUTSIDE RECORDS SUMMARY | 2024-12-08 15:59 | XMS_ITS | Clinical Summary ---
Author Organization [facility] Address [address] [place] [address] Care Team Providers Care Rn Acls Name Role Phone Unavailable Primary Care Provider Unavailabl e Medications Medication Sig Dispensed Refills Start Date End Date Status acetaminophen (TYLENOL) 160 MG/5ML solution Take 20.3 mL (650 mg total) by mouth every 6 (six) hours as needed for fever. 120 mL 0 07/25/2021 Active aspirin 81 MG chewable tablet Chew 1 tablet (81 mg total) by mouth daily. 30 tablet 0 07/26/2021 Active atorvastatin (LIPITOR) tablet 40 mg Take 1 tablet (40 mg total) by mouth every evening. 30 tablet 0 07/25/2021 Active formoterol (PERFOROMIST) 20 MCG/2ML nebulizer solution Take 2 mL (20 mcg total) by nebulization every 12 (twelve) hours. 120 mL 0 07/25/2021 Active ipratropium-albut jasmina (DUO-NEB) 0.5-2.5 mg/mL nebulizer Inhale 3 mL into the lungs every 6 (six) hours as needed. 360 mL 0 07/25/2021 Active lacosamide 150 MG TABS Take 150 mg by mouth 2 (two) times a day. 60 tablet 0 07/25/2021 Active senna (SENNA) 8.8 MG/5ML SYRP syrup Take 5 mL by mouth every night at bedtime. 105 mL 0 07/25/2021 Active Torsemide 40 MG TABS Take 40 mg by mouth daily. 30 tablet 0 07/30/2021 Active sertraline (ZOLOFT) 100 MG tablet Take 1 tablet (100 mg total) by mouth daily. 30 tablet 0 07/29/2021 Active polyethylene glycol (MIRALAX) 17 g packet Take 17 g by mouth daily. 14 each 0 07/29/2021 Active pantoprazole (PROTONIX) 40 MG tablet Take 1 tablet (40 mg total) by mouth every morning on an empty stomach. 30 tablet 0 07/29/2021 Active levETIRAcetam (KEPPRA) 750 MG tablet Take 2 tablets (1,500 mg total) by mouth 2 (two) times a day. 60 tablet 0 07/29/2021 Active dapagliflozin (FARXIGA) 10 MG tablet Take 1 tablet (10 mg total) by mouth daily. 30 tablet 0 07/30/2021 Active carvedilol (COREG) 6.25 MG tablet Take 1 tablet (6.25 mg total) by mouth 2 (two) times a day with meals. 60 tablet 0 07/29/2021 Active budesonide (PULMICORT) 0.5 MG/2ML nebulizer solution Take 1 mL (0.25 mg total) by nebulization 2 (two) times a day. 60 mL 12 07/29/2021 Active bisacodyl (DULCOLAX) [address] 1 suppository (10 mg total) rectally daily as needed. 12 suppository 0 07/29/2021 Active bictegravir-emtri citabine-tenofovi r (BIKTARVY) tablet 50-200-25 mg Take 1 tablet by mouth daily. 30 tablet 0 07/29/2021 Active Active Problems Problem Noted Date Diagnosed Date NSTEMI (non-ST elevated myocardial infarction) 0 07/20/2021 Acute respiratory failure with hypoxia 2 Asymptomatic HIV infection, with no history of HIV-related illness 07/20/2021 Acute systolic CHF (congestive heart failure) Non-convulsive status epilepticus 07/12/2021 Social History Tobacco Use Types Packs/Day Years Used Date Smoking Tobacco: Never Assessed Sex and Gender Information Value Date Recorded Sex Assigned at Male 07/13/2021 3:59 PM EDT Gender Identity Not on file Sexual Orientation Not on file Job Start Date Occupation Industry Not on file Not on file Not on file Last Filed Vital Signs Vital Sign Reading Time Taken Comments Blood Pressure 121/72 07/30/2021 8:00 AM EDT Pulse 71 07/30/2021 8:00 AM EDT Temperature 36.6 C (97.9 F) 07/30/2021 7:35 AM EDT Respiratory Rate 20 07/30/2021 8:00 AM EDT Oxygen Saturation 94% 07/30/2021 8:00 AM EDT Inhaled Oxygen Concentration - - Weight 57.6 kg (127 lb) 07/30/2021 5:58 AM EDT Height 162.6 cm (5' 4 ) 07/30/2021 5:58 AM EDT Body Mass Index 21.8 07/30/2021 5:58 AM EDT Plan of Treatment Health Maintenance Due Date Last Done Comments Hepatitis C Screening 1962 Depression Screening 1974 BMI Counseling 1980 Preventative Health Evaluation 1980 Shingrix-Zoster Vaccine (1 of 2) 1981 Colon Cancer Screening (Colonoscopy) 01/01/2008 Pneumococcal Vaccine (3 of 3 - PPSV23 or PCV20) 08/09/2022 08/09/2017, 03/05/2015 COVID-19 Vaccine (4 - season) 2024 12/28/2020, 06/02/2020, 05/12/2020 Influenza Vaccine (#1) 2024 12/28/2020 DTap / Tdap / Td (2 - Td or Tdap) 09/14/2026 09/14/2016 RSV Adult > 60+ Yrs or (1 - 1-dose 75+ series) 2037 Hepatitis B Vaccines Completed 06/22/2018, 04/19/2017, 11/23/2016, Additional history exists RSV Ped < 20 months Aged Out No longe r eligible based on patient's age to complete this topic Advance Directives For more information, please contact: [phone] Documents on File Type Date Recorded 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
== END 2024-12-08 13:57 | disposition home or self-care (01) ==
LOC: HO.HSM 13:41
PROVIDERS: PCP Internal Medicine; Visit Provider Registered Nurse
DX: R56.9 Unspecified convulsions (principal); G44.209 Tension-type headache, unspecified, not intractable
CPT/HCPCS: 99214

== ENCOUNTER → 2024-12-08 13:40 | Outpatient (BNVA) | payer MEDICARE, MEDICAID, SELFPAY | PROVIDERS: PCP Internal Medicine; Visit Provider Registered Nurse | DX: G44.209 Tension-type headache, unspecified, not intractable (principal); R56.9 Unspecified convulsions | CPT/HCPCS: 99212 ==